=== PATIENT | female | born 1940 | race Caucasian/White ===

== ENCOUNTER 2025-05-31 13:33 | Day surgery (SDC) | payer MEDICARE ==
[2025-05-31] MEDS ORDERED: LIDOCAINE HCL 2% 100 MG/5 ML IJ ONE (13:34)
[2025-05-31] MEDS ORDERED: methylPREDNISolone acetate IM ONE (13:34)
[2025-05-31 15:10] LABS: INR 0.99 (0.8-3.0); PROTIME 11.1 SECONDS (9.4-12.5)
[2025-05-31] MEDS ORDERED: Lactated Ringers 1,000 ML IV ONE (15:49)
[2025-05-31] MEDS ORDERED: propofoL IV ONE (16:00)
--- NOTE | 2025-05-31 16:59 | XRAY ---
Indication: Bilateral L4-S1 MBB. Intraoperative fluoroscopy provided for 10 seconds. Single digital spot image submitted for interpretation demonstrates posterior needle tips projecting over expected left and right L4-S1 nerve roots. Correlate with intraoperative findings/report.
--- NOTE | 2025-05-31 19:01 | XRAY ---
10 seconds of fluoroscopy were used in surgery for a bilateral L4-S1 MBB.
== END 2025-05-31 16:45 | disposition home or self-care (01) ==
LOC: SDC-PAIN 13:33
PROVIDERS: ATTEND Psychiatry & Neurology Pain Medicine
DX: M47.817 Spondylosis without myelopathy or radiculopathy, lumbosacral region (principal); Z79.01 Long term (current) use of anticoagulants

== ENCOUNTER 2025-07-12 12:53 | Day surgery (SDC) | payer MEDICARE ==
[2025-07-12] MEDS ORDERED: BUPIVACAINE 0.5% VIAL IJ ONE (12:54)
[2025-07-12] MEDS ORDERED: methylPREDNISolone acetate IM ONE (12:54)
[2025-07-12 13:50] LABS: INR 0.95 (0.8-3.0); PROTIME 10.7 SECONDS (9.4-12.5)
[2025-07-12] MEDS ORDERED: Lactated Ringers 1,000 ML IV ONE (14:00)
[2025-07-12] MEDS ORDERED: propofoL IV ONE (15:01)
--- NOTE | 2025-07-12 16:50 | XRAY ---
Indication: Bilateral L4-S1 MBB. Intraoperative fluoroscopy provided for 6 seconds. Single digital spot image submitted for interpretation demonstrates posterior needle tips projecting over expected left and right L4-S1 nerve roots. Correlate with intraoperative findings/report.
--- NOTE | 2025-07-12 17:02 | XRAY ---
6 seconds of fluoroscopy were used in surgery for a bilateral L4-S1 MBB.
== END 2025-07-12 15:40 | disposition home or self-care (01) ==
LOC: SDC-PAIN 12:53
PROVIDERS: ATTEND Psychiatry & Neurology Pain Medicine
DX: M47.817 Spondylosis without myelopathy or radiculopathy, lumbosacral region (principal); Z79.01 Long term (current) use of anticoagulants